=== PATIENT | female | born 1990 | race Caucasian/White ===

== ENCOUNTER → 2021-05-06 | Emergency (ER) | payer BC ==
[~2021-05-06] VITALS: Ht 157.5 cm; Wt 102.1 kg
[~2021-05-06] MED LIST: ACETAMINOPHEN 325 MG TAB PO ONE; CASIRIVIMAB/IMDEVIMAB 10 ML in SODIUM CHLORIDE 0.9% 100 ML IV ONE
[2021-05-06 14:53] VITALS: BP 122/68
== END | disposition home or self-care (01) ==
LOC: ER 13:37
DX: U07.1 COVID-19 (principal); R50.9 Fever, unspecified; R05 Cough
CPT/HCPCS: 99283; J7050